=== PATIENT | female | born 1945 | race Caucasian/White ===

== ENCOUNTER → 2021-06-22 | Outpatient (CLI) | payer MEDICARE ==
[2013-12-26 10:35] VITALS: BP 112/68
[~2021-06-22] MED LIST: ALLO100T PO; ASPI-630 PO; COLC0.6T34 PO; CYAN10002 IJ; DICL100G54 TP; DILT180C29 PO; FERR325T58 PO; HYDR-2679 PO; HYDR1KIT14 RC; LEVO25TA4 PO; LOSA25TA54 PO; METF-658 PO; METOPROLOL XL PO; NAPR-514 PO; SIMV20TA18 PO; TRAM50TA PO
--- NOTE | 2021-06-22 15:50 | KCIC ---
XR CHEST 2V 06/22/2021 Reason: BRONCHITIS WITH BRONCHIOSPASMS, COUGH, SOA, 1 MONTH Comparison: None Technique: PA and lateral radiographs the chest. Images limited by patient positioning. Findings: Low lung volumes. Diffuse interstitial changes. No pleural effusion or pneumothorax. Cardiac mediasti nal silhouette appears enlarged. Possible right perihilar fullness. Impression: Diffuse interstitial changes likely related to emphysema. No acute interstitial process is difficult to exclude. Electronically signed by: Meng Braga MD (06/22/2021 3:48 PM) [id number]
== END ==
LOC: KCIC 12:50
PROVIDERS: ATTEND Family Medicine
DX: J20.9 Acute bronchitis, unspecified (principal)
CPT/HCPCS: 71046